=== PATIENT | male | born 1960 | race Caucasian/White ===

== ENCOUNTER 2023-08-31 11:37 | Emergency (ER) | payer OTHER ==
[2023-08-31 11:49] VITALS: BP 120/83; PULSE 60
[2023-08-31] MEDS: Ketorolac 60 MG/2 ML SDV IM ONE (12:20)
[2023-09-01] MEDS: Ketorolac 60 MG/2 ML SDV ONE (08:13)
== END 2023-08-31 12:29 | disposition home or self-care (01) ==
LOC: LB.ED 11:37
DX: S39.012A Strain of muscle, fascia and tendon of lower back, initial encounter (principal); X58.XXXA Exposure to other specified factors, initial encounter
CPT/HCPCS: 96372; 99283; J1885